=== PATIENT | female | born 1995 | race African-American/Black ===

== ENCOUNTER 2016-08-28 13:03 | Emergency (ER) | payer MEDICAID ==
[~2016-08-28] VITALS: Ht 165.1 cm; Wt 51.0 kg
[2016-08-28] MEDS ORDERED: IOHEXOL-300 100 ML BOTTLE ONE (14:22)
[2016-08-28] MEDS ORDERED: SODIUM CHLORIDE 0.9% 10ML VIAL ONE (14:22)
[2016-08-28] MEDS ORDERED: ONDANSETRON 4MG ODT PO ONE (16:00)
[2016-08-28] MEDS ORDERED: ACETAMINOPHEN 650MG/20.3ML UDC PO ONE (16:00)
[2016-08-28 16:25] LABS: BASOPHILS % 0.8 % (0.0-2.0); EOSINOPHILS % 1.6 % (0.0-5.0); HEMATOCRIT. 34.1 % (36.0-48.0); HEMOGLOBIN. 11.5 g/dL (12.0-16.0); LYMPHOCYTES % 31.4 % (20.0-50.0); MEAN CORPUSCULAR HEMOGLOBIN 28.8 pg (28.0-32.0); MEAN CORPUSCULAR VOLUME 84.9 fL (81.0-99.0); MEAN PLATELET VOLUME 7.7 fl (7.4-10.4); MONOCYTES % 6.9 % (2.0-8.0); NEUTROPHILS % 59.3 % (40.0-76.0); PLATELET 225 x1000/uL (130-400); RED BLOOD CELL COUNT 4.01 mill/uL (4.2-5.4); RED CELL DISTRIBUTION WIDTH 13.8 % (11.6-14.6)
[2016-08-28 16:33] LABS: HCG SCREEN NEGATIVE
[2016-08-28 16:37] LABS: CARBON DIOXIDE 24 mEq/L (21-32); CHLORIDE 109 mEq/L (98-107)
[2016-08-28 18:22] LABS: CLARITY URINE CLEAR (CLEAR); COLOR URINE YELLOW (YELLOW); GLUCOSE URINE NEGATIVE (NEGATIVE); KETONES URINE NEGATIVE (NEGATIVE); LEUKOCYTE ESTERASE URINE NEGATIVE (NEGATIVE); NITRITE URINE NEGATIVE (NEGATIVE); OCCULT BLOOD URINE NEGATIVE (NEGATIVE); PH URINE 6.5 (4.5-8.0); PROTEIN URINE NEGATIVE (NEGATIVE); SPECIFIC GRAVITY URINE 1.023 (1.005-1.030)
[2016-08-28 19:20] VITALS: BP 118/71
== END 2016-08-28 20:16 | disposition home or self-care (01) ==
LOC: ER 15:59
DX: S20.02XA Contusion of left breast, initial encounter (principal); N60.02 Solitary cyst of left breast; R10.31 Right lower quadrant pain; W18.30XA Fall on same level, unspecified, initial encounter; Y93.89 Activity, other specified; Y92.89 Other specified places as the place of occurrence of the external cause; Y99.8 Other external cause status
CPT/HCPCS: 36415; 71010; 74177; 80053; 81003; 84703; 85025; 99285; A4216; Q0162; Q9967; Z7610